=== PATIENT | male | born 1965 | race Caucasian/White ===

== ENCOUNTER 2017-03-14 08:34 | Observation (INO) | payer OTHER ==
[~2017-03-14] VITALS: Ht 170.2 cm; Wt 90.7 kg
[2017-03-14 08:36] VITALS: BP 161/84; PULSE 93; RESP 18; TEMP 98.3; O2SAT 100
[2017-03-14] MEDS ORDERED: ZOFR4TAB PO (08:42)
[2017-03-14] MEDS ORDERED: PERC5TAB12 PO (08:42)
[2017-03-14] MEDS ORDERED: ONDANSETRON HCL 4 MG/2 ML VIAL IV PUSH ONE (08:45)
[2017-03-14] MEDS ORDERED: MORPHINE SULFATE 8 MG/ML INJ IV PUSH ONE ×2 (08:45→10:30)
--- NOTE | 2017-03-14 08:46 | PD ---
HPI Chief Complaint: Flank/Kidney Pain Time Seen by Provider: 08:38 Travel History International Travel<30 days: No Contact w/Intl Traveler<30days: No Traveled to known affect area: No History of Present Illness HPI 52yo M with PMH of nephrolithiasis presents to the ED with c/o left flank pain for 1.5 hours. States he went to an ER that he does not remember the name of and had diagnosis of kidney stones 3 days ago and was given shot of morphine and discharge with percocet. However, he has been vomiting and not able to keep anything down. +Hematuria. Denies any fever, chest pain, sob, testicular pain, penile discharge, focal weakness or numbness. PFSH Past Medical History Medical History: Denies Significant Hx Hx Anticoagulant Therapy: No Diminished Hearing: No Tetanus Vaccination: < 5 Years Past Surgical History Surgical History: No Previous Surgery Social History Alcohol Use: No Tobacco Use: No Substance Use: No Allergies-Medications (Allergen,Severity, Reaction): Coded Allergies: No Known Allergies (Unverified , 03/14/17) Reported Meds & Prescriptions Reported Meds & Active Scripts Active Reported Percocet (Oxycodone-Acetaminophen) 5-325 mg Tab Unknown Dose PO Q4H PRN Zofran (Ondansetron HCl) 4 Mg Tab 4 Mg PO Q8HR PRN Review of Systems Except as stated in HPI: all other systems reviewed are Neg Physical Exam Narrative GENERAL: 52yo M in moderate distress. SKIN: Focused skin assessment warm/dry. HEAD: Atraumatic. Normocephalic. EYES: Pupils equal and round. No scleral icterus. No injection or drainage. ENT: No nasal bleeding or discharge. Mucous membranes pink and moist. NECK: Trachea midline. No JVD. CARDIOVASCULAR: Regular rate and rhythm. No murmur appreciated. RESPIRATORY: No accessory muscle use. Clear to auscultation. Breath sounds equal bilaterally. GASTROINTESTINAL: Abdomen soft, non-tender, nondistended. BACK: +Left flank pain. MUSCULOSKELETAL: No obvious deformities. No clubbing. No cyanosis. No edema. NEUROLOGICAL: Awake and alert. No obvious cranial nerve deficits. Motor grossly within normal limits. Normal speech. PSYCHIATRIC: Appropriate mood and affect; insight and judgment normal. Data Data Last Documented VS Vital Signs Date Time Temp Pulse Resp B/P Pulse Ox O2 Delivery O2 Flow Rate FiO2 03/14/17 09:53 71 16 131/54 98 Room Air 03/14/17 08:36 98.3 Orders Ondansetron Inj (Zofran Inj) (03/14/17 08:45) Morphine Inj (Morphine Inj) (03/14/17 08:45) Complete Blood Count With Diff (03/14/17 08:40) Comprehensive Metabolic Panel (03/14/17 08:40) Ct Abd/Pel W/O Iv Contrast (03/14/17 ) Urinalysis - C+S If Indicated (03/14/17 08:40) Urine Culture (03/14/17 09:07) Ceftriaxone Inj (Rocephin Inj) (03/14/17 09:45) Morphine Inj (Morphine Inj) (03/14/17 10:30) Admit Order (Ed Use Only) (03/14/17 10:40) Consult Urology (03/14/17 ) Labs Laboratory Tests Test 03/14/17 03/14/17 09:00 09:07 White Blood Count 11.9 TH/MM3 Red Blood Count 5.12 MIL/MM3 Hemoglobin 14.7 GM/DL Hematocrit 44.1 % Mean Corpuscular Volume 86.1 FL Mean Corpuscular Hemoglobin 28.7 PG Mean Corpuscular Hemoglobin 33.3 % Concent Red Cell Distribution Width 13.1 % Platelet Count 237 TH/MM3 Mean Platelet Volume 7.9 FL Neutrophils (%) (Auto) 79.1 % Lymphocytes (%) (Auto) 12.5 % Monocytes (%) (Auto) 6.5 % Eosinophils (%) (Auto) 0.6 % Basophils (%) (Auto) 1.3 % Neutrophils # (Auto) 9.2 TH/MM3 Lymphocytes # (Auto) 1.5 TH/MM3 Monocytes # (Auto) 0.8 TH/MM3 Eosinophils # (Auto) 0.1 TH/MM3 Basophils # (Auto) 0.2 TH/MM3 CBC Comment DIFF FINAL Differential Comment Sodium Level 145 MEQ/L Potassium Level 3.7 MEQ/L Chloride Level 110 MEQ/L Carbon Dioxide Level 22.6 MEQ/L Anion Gap 12 MEQ/L Blood Urea Nitrogen 16 MG/DL Creatinine 1.40 MG/DL Estimat Glomerular Filtration 53 ML/MIN Rate Random Glucose 134 MG/DL Calcium Level 9.1 MG/DL Total Bilirubin 0.8 MG/DL Aspartate Amino Transf 21 U/L (AST/SGOT) Alanine Aminotransferase 54 U/L (ALT/SGPT) Alkaline Phosphatase 33 U/L Total Protein 6.8 GM/DL Albumin 3.7 GM/DL Urine Collection Type CLEAN CATCH Urine Color YELLOW Urine Turbidity SLIGHT Urine pH 5.5 Urine Specific Quinn 1.017 Urine Protein TRACE mg/dL Urine Glucose (UA) NEG mg/dL Urine Ketones TRACE mg/dL Urine Occult Blood LARGE Urine Nitrite NEG Urine Bilirubin NEG Urine Leukocyte Esterase TRACE Urine RBC INNUM /hpf Urine WBC 25-49 /hpf Urine Squamous Epithelial 6-8 /hpf Cells Microscopic Urinalysis Comment CULTURE INDICATED Urine Collection Time 09:07 [facility] Medical Decision Making Medical Screen Exam Complete: Yes Emergency Medical Condition: Yes Interpretation(s) Laboratory Tests Test 03/14/17 03/14/17 09:00 09:07 White Blood Count 11.9 TH/MM3 (4.0-11.0) Red Blood Count 5.12 MIL/MM3 (4.50-5.90) Hemoglobin 14.7 GM/DL (13.0-17.0) Hematocrit 44.1 % (39.0-51.0) Mean Corpuscular Volume 86.1 FL (80.0-100.0) Mean Corpuscular Hemoglobin 28.7 PG (27.0-34.0) Mean Corpuscular Hemoglobin 33.3 % Concent (32.0-36.0) Red Cell Distribution Width 13.1 % (11.6-17.2) Platelet Count 237 TH/MM3 (150-450) Mean Platelet Volume 7.9 FL (7.0-11.0) Neutrophils (%) (Auto) 79.1 % (16.0-70.0) Lymphocytes (%) (Auto) 12.5 % (9.0-44.0) Monocytes (%) (Auto) 6.5 % (0.0-8.0) Eosinophils (%) (Auto) 0.6 % (0.0-4.0) Basophils (%) (Auto) 1.3 % (0.0-2.0) Neutrophils # (Auto) 9.2 TH/MM3 (1.8-7.7) Lymphocytes # (Auto) 1.5 TH/MM3 (1.0-4.8) Monocytes # (Auto) 0.8 TH/MM3 (0-0.9) Eosinophils # (Auto) 0.1 TH/MM3 (0-0.4) Basophils # (Auto) 0.2 TH/MM3 (0-0.2) CBC Comment DIFF FINAL Differential Comment Sodium Level 145 MEQ/L (136-145) Potassium Level 3.7 MEQ/L (3.5-5.1) Chloride Level 110 MEQ/L (98-107) Carbon Dioxide Level 22.6 MEQ/L (21.0-32.0) Anion Gap 12 MEQ/L (5-15) Blood Urea Nitrogen 16 MG/DL (7-18) Creatinine 1.40 MG/DL (0.60-1.30) Estimat Glomerular Filtration 53 ML/MIN (>89) Rate Random Glucose 134 MG/DL (74-106) Calcium Level 9.1 MG/DL (8.5-10.1) Total Bilirubin 0.8 MG/DL (0.2-1.0) Aspartate Amino Transf 21 U/L (15-37) (AST/SGOT) Alanine Aminotransferase 54 U/L (12-78) (ALT/SGPT) Alkaline Phosphatase 33 U/L (45-117) Total Protein 6.8 GM/DL (6.4-8.2) Albumin 3.7 GM/DL (3.4-5.0) Urine Collection Type CLEAN CATCH Urine Color YELLOW (YELLW/STRAW) Urine Turbidity SLIGHT (CLEAR) Urine pH 5.5 (5.0-8.5) Urine Specific Quinn 1.017 (1.002-1.035) Urine Protein TRACE mg/dL (NEG-TRACE) Urine Glucose (UA) NEG mg/dL (NEG) Urine Ketones TRACE mg/dL (NEG) Urine Occult Blood LARGE (NEG) Urine Nitrite NEG (NEG) Urine Bilirubin NEG (NEG) Urine Leukocyte Esterase TRACE (NEG) Urine RBC INNUM /hpf (0-3) Urine WBC 25-49 /hpf (0-5) Urine Squamous Epithelial 6-8 /hpf (0-5) Cells Microscopic Urinalysis Comment CULTURE INDICATED Urine Collection Time 09:07 Last Impressions Abdomen/Pelvis CT 03/14/17 0000 Signed Impressions: Service Date/Time: Tuesday, March 14, 2017 09:06 - CONCLUSION: 4 mm obstructing stone distal third left ureter. Multiple stones remain in the left kidney. Single stone is present in the right. Kamari Nj MD FACR Differential Diagnosis Nephrolithiasis vs. pyelonephritis vs. colitis Narrative Course 52yo M with recent diagnosis of nephrolithiasis here with left flank pain. Pain appears very uncomfortable and states he is not allergic to morphine, just had some nausea last time. Will give zofran and morphine IV, obtain labs and CTa/p-. Pt has gone to [facility] ED 2 times since Friday and this is his third ED visit for this. Labs reviewed, mild leukocytosis at 11.9. Creatinine elevated at 1.40. UA showed large blood, WBC 25-49. Pt given ceftriaxone 1gm IV. Pt reevaluated at bedside and pain and nausea has improved. Pt states pain is starting to return. Ordered another dose of morphine. CTa/p showed 4mm obstructing stone distal third ureter. Discussed with urologist ship yard electrical person Dr. Alonso and he said to admit for pain control. Consult placed. Discussed with Dr. Garcia and accepted to his service for obstructive uropathy. Diagnosis Primary Impression: Obstructive uropathy Additional Impression: UTI (urinary tract infection) Qualified Code: N39.0 - Urinary tract infection with hematuria, site unspecified Admitting Information Admitting Physician Requests: Yumiko Snow DO Mar 14, 2017 08:46
[2017-03-14 09:10] LABS: AUTOMATED NEUTROPHIL # 9.2 TH/MM3 (1.8-7.7); BASOPHIL # 0.2 TH/MM3 (0-0.2); BASOPHIL % 1.3 % (0.0-2.0); EOSINOPHIL # 0.1 TH/MM3 (0-0.4); EOSINOPHIL % 0.6 % (0.0-4.0); HEMATOCRIT 44.1 % (39.0-51.0); LYMPH % 12.5 % (9.0-44.0); LYMPHOCYTE # 1.5 TH/MM3 (1.0-4.8); MEAN CELL VOLUME 86.1 FL (80.0-100.0); MEAN CORPUSCULAR HEMOGLOBIN 28.7 PG (27.0-34.0); MEAN CORPUSCULAR HGB CONC 33.3 % (32.0-36.0); MONO % 6.5 % (0.0-8.0); NEUT % 79.1 % (16.0-70.0); PLATELET COUNT 237 TH/MM3 (150-450); RED BLOOD COUNT 5.12 MIL/MM3 (4.50-5.90); RED CELL DISTRIBUTION WIDTH 13.1 % (11.6-17.2); WHITE BLOOD COUNT 11.9 TH/MM3 (4.0-11.0)
[2017-03-14 09:17] LABS: HEMO FLAGS DIFF FINAL
[2017-03-14 09:21] LABS: BLOOD, URINE LARGE (NEG); GLUCOSE,URINE NEG (NEG); KETONE, URINE TRACE mg/dL (NEG); NITRITE,URINE NEG (NEG); PH, URINE 5.5 (5.0-8.5)
[2017-03-14 09:25] LABS: METHOD OF COLLECTION CLEAN CATCH; URINE COLOR YELLOW (YELLW/STRAW)
[2017-03-14 09:26] LABS: COMMENT (UR) CULTURE INDICATED; CULTURE IF INDICATED CULTURE INDICATED; RBC, URINE INNUM /hpf (0-3)
--- NOTE | 2017-03-14 09:42 | RADRPT ---
EXAM DATE/TIME: 03/14/2017 09:06 [facility] COMPARISON: No previous studies available for comparison. INDICATIONS : Left flank and back pain. ORAL CONTRAST: No oral contrast ingested. RADIATION DOSE: 18.57 CTDIvol (mGy) MEDICAL HISTORY : Renal calculi. SURGICAL HISTORY : None. ENCOUNTER: Initial ACUITY: 4 - 6 days PAIN SCALE: 10/10 LOCATION: Left flank TECHNIQUE: Volumetric scanning of the abdomen and pelvis was performed. Using automated exposure control and ad justment of the mA and/or kV according to patient size, radiation dose was kept as low as reasonably achievable to obtain optimal diagnostic quality images. DICOM format image data is available electro nically for review and comparison. FINDINGS: The lung base is are clear. There is no pericardial effusion. Granulomas are present in the spleen. The pancreas, kidneys and gallbladder are unremarkable Right kidney: There is a 4 mm nonobstructing stone midportion right kidney. Left kidney: Multiple small 1-2 mm calcifications are present in the left kidney with mild perinephric stranding. A dilated ureter extending down to the mid pelvis were a 4 mm stone is seen in the midportion of th e distal third of the left ureter. Pelvic contents otherwise unremarkable with the exception of prostatic calcifications. CONCLUSION: 4 mm obstructing stone distal third left ureter. Multiple stones remain in the left kidney. Single stone is present in the right. Kamari Nj MD FACR on March 14, 2017 at 9:37 Board Certified Radiologist. This report was verified electronically.
[2017-03-14] MEDS ORDERED: cefTRIAXone INJ 1,000 MG in SODIUM CHLORIDE 0.9% INJ 100 ML IV ONE (09:45)
[2017-03-14 09:48] LABS: BICARBONATE 22.6 MEQ/L (21.0-32.0); BLOOD UREA NITROGEN 16 MG/DL (7-18)
[2017-03-14 09:51] LABS: AST (GOT) 21 U/L (15-37); GLOMERULAR FILTRATION RATE 53 ML/MIN (>89)
[2017-03-14 09:53] VITALS: BP 131/54; PULSE 71; RESP 16; O2SAT 98
[2017-03-14 09:53] LABS: TOTAL BILIRUBIN ADULT 0.8 MG/DL (0.2-1.0)
[2017-03-14 09:54] LABS: ALKALINE PHOSPHATASE 33 U/L (45-117)
[2017-03-14 09:55] LABS: ANION GAP 12 MEQ/L (5-15); CHLORIDE 110 MEQ/L (98-107); POTASSIUM 3.7 MEQ/L (3.5-5.1); SODIUM (NA) 145 MEQ/L (136-145)
[2017-03-14 10:06] LABS: ALT (GPT) 54 U/L (12-78)
[2017-03-14] MEDS ORDERED: MORPHINE SULFATE 4 MG/ML INJ IV PUSH ONE (10:30)
[2017-03-14] MEDS ORDERED: ONDANSETRON HCL 4 MG/2 ML VIAL IVP PRN (10:45)
[2017-03-14] MEDS ORDERED: SODIUM CHLORIDE 0.9% FLUSH 10 ML FLUSH IV FLUSH PRN (10:45)
[2017-03-14] MEDS ORDERED: SENNOSIDES 8.6 MG TAB PO PRN (10:45)
[2017-03-14] MEDS ORDERED: BISACODYL 10 MG SUPP RECTAL PRN (10:45)
[2017-03-14] MEDS ORDERED: LACTULOSE SYRUP 20 GM/30 ML CUP PO PRN (10:45)
[2017-03-14] MEDS ORDERED: ACETAMINOPHEN 325 MG TAB PO PRN (10:45)
[2017-03-14] MEDS ORDERED: NALOXONE HCL 0.4 MG/ML AMP IV PRN (10:45)
[2017-03-14] MEDS ORDERED: MAGNESIUM HYDROXIDE SUSP 30 ML CUP PO PRN (10:45)
[2017-03-14 11:42] VITALS: BP 130/60; PULSE 74; RESP 18; O2SAT 97
[2017-03-14] MEDS ORDERED: MORPHINE SULFATE 8 MG/ML INJ IV PUSH PRN (12:45)
[2017-03-14] MEDS: SODIUM CHLOR 0.9% 1000 ML INJ 1,000 ML IV SCH ×3 (12:56→18:27)
[2017-03-14] MEDS: oxyCODONE/ACETAMINOPHEN 10 MG/325 MG TAB PO PRN ×2 (12:56→18:35)
[2017-03-14 12:59] VITALS: BP 132/51; PULSE 61; RESP 18; O2SAT 98
--- NOTE | 2017-03-14 13:13 | HHI.HP ---
[facility] No Primary Care Physician Admission Diagnosis Obstructive uropathy Diagnoses: Chief Complaint: Left Flank pain Travel History International Travel<30 Days: No Contact w/Intl Traveler <30 Da: No Traveled to Known Affected Are: No History of Present Illness Mr. Marion is a 52-year-old male with a history of kidney stone who presents to the emergency department on 03/14/2017 with left flank pain that started one and half hour before presentation. He has had flank pain in the last one week and he passed one stone. He felt well after he passed stone. However, today, he started experiencing pain again. He has not been able to keep anything down due to nausea vomiting. He reports hematuria as well. Denies any increased urinary frequency, fever, chills. No changes in bowel habits. No chest pain, shortness of breath, cough. Review of Systems Except as stated in HPI: all other systems reviewed are Neg Past Family Social History Past Medical History No significant medical history Past Surgical History No significant surgical history. Reported Medications Percocet (Oxycodone-Acetaminophen) 5-325 mg Tab Unknown Dose PO Q4H PRN Zofran (Ondansetron HCl) 4 Mg Tab 4 Mg PO Q8HR PRN Allergies: Coded Allergies: No Known Allergies (Unverified , 03/14/17) Family History Father - kidney stone, prostate issues. Social History Denies using alcohol, tobacco, illicit drugs. Physical Exam Vital Signs Vital Signs Date Time Temp Pulse Resp B/P Pulse Ox O2 Delivery O2 Flow Rate FiO2 03/14/17 12:59 61 18 132/51 98 Room Air 03/14/17 11:42 74 18 130/60 97 Room Air 03/14/17 09:53 71 16 131/54 98 Room Air 03/14/17 08:36 98.3 93 18 161/84 100 Physical Exam GENERAL: This is a well-nourished, well-developed patient, in no apparent distress. SKIN: No rashes, ecchymoses or lesions. Warm and dry. HEAD: Atraumatic. Normocephalic. No temporal or scalp tenderness. EYES: Pupils equal round and reactive. No injection or drainage. ENT: Nose without bleeding, purulent drainage or septal hematoma. Airway patent. NECK: Trachea midline. No lymphadenopathy. Supple, nontender, no meningeal signs. CARDIOVASCULAR: Regular rate and rhythm without murmurs, gallops, or rubs. No JVD. RESPIRATORY: Clear to auscultation. Breath sounds equal bilaterally. No wheezes , rales, or rhonchi. GASTROINTESTINAL: Abdomen soft, non-tender, nondistended. No guarding. Left sided CVA tenderness present. MUSCULOSKELETAL: Extremities without clubbing, cyanosis, or edema. NEUROLOGICAL: Awake and alert. Cranial nerves II through XII intact. No focal neurological deficits. Normal speech. Laboratory Laboratory Tests Test 03/14/17 03/14/17 09:00 09:07 White Blood Count 11.9 Red Blood Count 5.12 Hemoglobin 14.7 Hematocrit 44.1 Mean Corpuscular Volume 86.1 Mean Corpuscular Hemoglobin 28.7 Mean Corpuscular Hemoglobin 33.3 Concent Red Cell Distribution Width 13.1 Platelet Count 237 Mean Platelet Volume 7.9 Neutrophils (%) (Auto) 79.1 Lymphocytes (%) (Auto) 12.5 Monocytes (%) (Auto) 6.5 Eosinophils (%) (Auto) 0.6 Basophils (%) (Auto) 1.3 Neutrophils # (Auto) 9.2 Lymphocytes # (Auto) 1.5 Monocytes # (Auto) 0.8 Eosinophils # (Auto) 0.1 Basophils # (Auto) 0.2 CBC Comment DIFF FINAL Differential Comment Sodium Level 145 Potassium Level 3.7 Chloride Level 110 Carbon Dioxide Level 22.6 Anion Gap 12 Blood Urea Nitrogen 16 Creatinine 1.40 Estimat Glomerular Filtration 53 Rate Random Glucose 134 Calcium Level 9.1 Total Bilirubin 0.8 Aspartate Amino Transf 21 (AST/SGOT) Alanine Aminotransferase 54 (ALT/SGPT) Alkaline Phosphatase 33 Total Protein 6.8 Albumin 3.7 Urine Collection Type CLEAN CATCH Urine Color YELLOW Urine Turbidity SLIGHT Urine pH 5.5 Urine Specific Zamora 1.017 Urine Protein TRACE Urine Glucose (UA) NEG Urine Ketones TRACE Urine Occult Blood LARGE Urine Nitrite NEG Urine Bilirubin NEG Urine Leukocyte Esterase TRACE Urine RBC INNUM Urine WBC 25-49 Urine Squamous Epithelial 6-8 Cells Microscopic Urinalysis Comment CULTURE INDICATED Urine Collection Time 09:07 Date/Time Procedure Status Source Growth 03/14/17 09:07 Urine Culture Received Urine Clean Catch Pending Result Diagram: 03/14/17 0900 03/14/17 0900 Imaging Last Impressions Abdomen/Pelvis CT 03/14/17 0000 Signed Impressions: Service Date/Time: Tuesday, March 14, 2017 09:06 - CONCLUSION: 4 mm obstructing stone distal third left ureter. Multiple stones remain in the left kidney. Single stone is present in the right. Kamari Nj MD FACR Assessment and Plan Problem List: (1) Left ureteral calculus ICD Code: N20.1 Status: Acute (2) AME (acute kidney injury) ICD Code: N17.9 Status: Acute Assessment and Plan Mr. Marion is a 52 year old male with a history of kidney stone who presents to the emergency department due to left flank pain. CT abdomen pelvis shows left distal ureter stone. Urology was consulted. - Left ureteral calculus - Urology consulted. - Continue NS 150cc/hour. - Continue Percocet, Morphine PRN for pain control. - Discussed with Urology (Dr. Alonso). We will continue conservative management. If patient does not pass stone, Urology eval would be necessary. - Acute kidney injury - Likely due to obstructive calculus. - Will continue to monitor. Avoid NSAIDs and other nephrotoxins. Full code. SCDs. Grzegorz Garcia DO Mar 14, 2017 1:13 pm
[2017-03-14 15:00] VITALS: BP 114/63; PULSE 73; RESP 18; TEMP 98.7; O2SAT 95
[2017-03-14] MEDS: TAMSULOSIN HCL 0.4 MG CAP PO SCH (18:26)
--- NOTE | 2017-03-14 19:00 | MB ---
cc: TERRENCE TUCKER MD DATE OF CONSULTATION 03/14/17 REASON FOR CONSULTATION 1. Distal left ureteral stone. 2. Left flank pain. 3. History of kidney stones. HISTORY OF PRESENT ILLNESS The patient is a 52-year-old male with a history of kidney stones in which he passed last year, presented to the emergency department on 03/14/17 with sharp stabbing left flank pain 10/10 in intensity earlier this morning. He had pain earlier this week while here on vacation from [place] in which he ended up passing two stones. This pain today is similar to the pain he had 3 days ago. Denies nausea, vomiting, fevers, chills, dysuria, hematuria. The patient had a CT of the abdomen and pelvis without contrast done today in the ER which showed a 4 mm distal left ureteral stone with mild hydronephrosis. He also had a nonobstructing stone in the right kidney. He was then admitted for pain control. Currently, his pain is improved but still present in his left flank. However, it is controlled with oral Percocet. He has not received any IV pain medication since being admitted. He denies family history of kidney stones or family history of prostate cancer. He was supposed to head back to [place] today but the pain was so excruciating earlier this morning that he came to the ER. He would like to pass the stone and try to avoid surgery if possible. REVIEW OF SYSTEMS See HPI, otherwise, all systems reviewed otherwise are negative. PAST MEDICAL HISTORY Past history for kidney stones. PAST SURGICAL HISTORY Circumcision. ALLERGIES None. FAMILY HISTORY Negative for genitourinary malignancies. Negative for urolithiasis. SOCIAL HISTORY Denies smoking, alcohol or illicit drugs. He is , lives in [place]. REPORTED MEDICATIONS Included: 1. Percocet 5/325 q.4 hours p.r.n. pain. 2. Zofran 4 milligrams p.o. q.8 hours p.r.n. nausea. REVIEW OF SYSTEMS See HPI, otherwise, all systems reviewed otherwise were negative. PHYSICAL EXAMINATION VITAL SIGNS: Temperature 98.7, pulse is 73, respirations 18, blood pressure 149/63, satting 98% on room air. GENERAL: He is alert and oriented x3. No apparent distress. Pleasant, cooperative gentleman, appears his stated age. HEENT: Head is normocephalic, atraumatic. Neck is supple. Trachea is midline. No JVD. Eyes: No scleral icterus. Extraocular muscles intact. Skin: No ulcers or rashes. Mucous membranes pink and moist. LUNGS: Clear to auscultation bilaterally. No wheezes, rales or rhonchi. HEART: Regular rhythm. No murmurs, gallops, rubs. ABDOMEN: Soft, nontender, mild distension. Positive bowel sounds. GENITORUINARY: There is no CVA tenderness bilaterally. His penis is circumcised. Testes are descended bilaterally, normal size and consistency. RECTAL: Examination not indicated at this time. EXTREMITIES: Nontender. No clubbing, cyanosis, edema. PSYCH: Normal affect. NEUROLOGICAL: Cranial nerves II-XII intact. Strength is 5/5 in all four extremities. LABORATORY DATA Labs show a white count 11.9, hemoglobin 14.7, hematocrit 44.1, platelet count 237. Chemistry 145, potassium 3.7, chloride 110, bicarb 22.6, BUN 16, creatinine 1.40, glucose 134. Urine showed large blood, trace leukocyte esterase. Culture currently pending. IMAGING STUDIES CT of abdomen and pelvis without contrast images are reviewed. Agree with radiologist's report. The patient has a 4 mm distal left ureteral stone mild hydronephrosis as well as a right 5 mm non-obstructing stone. ASSESSMENT/PLAN The patient is a 52-year-old male with a history of kidney stones, presented with left flank pain and found to have a distal left ureteral stone approximately 4 mm in size with mild hydronephrosis. PLAN Recommend conservative management and trial of passage. Will start the patient on Flomax 0.4 milligrams daily and have him strain all urine. Will check a KUB in the morning. As long as his pain remains controlled and his symptoms do not worsen or he becomes septic I think it warrants in my opinion a trial passage of the stone. Thank you for this consultation. Terrence Tucker MD EMMely/CHYNA /6:06 PM /6:45 PM
[2017-03-14 20:21] VITALS: BP 113/60; PULSE 70; RESP 18; TEMP 99.4; O2SAT 94
[2017-03-14] MEDS: DOCUSATE SODIUM 50 MG/SENNA 8.6 MG TAB PO SCH (20:45)
[2017-03-14] MEDS: SODIUM CHLORIDE 0.9% FLUSH 10 ML FLUSH IV FLUSH SCH (20:49)
[2017-03-15 00:36] VITALS: BP 107/71; PULSE 88; RESP 22; TEMP 99; O2SAT 96
--- NOTE | 2017-03-15 06:44 | RADRPT ---
EXAM DATE/TIME: 03/15/2017 06:04 [facility] COMPARISON: CT ABDOMEN & PELVIS W/O CONTRAST, March 14, 2017, 9:06. INDICATIONS : Left flank and back pain. MEDICAL HISTORY : Renal calculi. SURGICAL HISTORY : None. ENCOUNTER: Initial ACUITY: 1 week PAIN SCORE: 1/10 LOCATION: Bilateral abdomen FINDINGS: Supine view of the abdomen was performed. 3 mm calcification remains overlying the left hemipelvis mo re consistent with a phlebolith identified on the previous CT scan rather than the ureteral stone see n previously. 2 mm calcification overlies the mid pole left kidney is of uncertain significance . The abdominal bowel gas pattern is normal. No abnormal masses, or organomegaly is seen. The osseou s structures are unremarkable. CONCLUSION: There is a calcification overlying the left side of the pelvis. It is difficult to long lines operator whether it is in the phlebolith or the actual ureteral calculus identified previously on the CT scan. The bowel gas pattern is unremarkable Juanjose Flynn MD on March 15, 2017 at 6:37 Board Certified Radiologist. This report was verified electronically.
[2017-03-15 07:26] LABS: BASOPHIL # 0.1 TH/MM3 (0-0.2); BASOPHIL % 0.9 % (0.0-2.0); EOSINOPHIL # 0.1 TH/MM3 (0-0.4); HEMATOCRIT 38.6 % (39.0-51.0); HEMO FLAGS DIFF FINAL; LYMPH % 27.2 % (9.0-44.0); LYMPHOCYTE # 2.1 TH/MM3 (1.0-4.8); MEAN CORPUSCULAR HEMOGLOBIN 28.7 PG (27.0-34.0); MEAN CORPUSCULAR HGB CONC 33.3 % (32.0-36.0); MONO % 7.9 % (0.0-8.0); PLATELET COUNT 193 TH/MM3 (150-450); RED BLOOD COUNT 4.49 MIL/MM3 (4.50-5.90); RED CELL DISTRIBUTION WIDTH 12.8 % (11.6-17.2); WHITE BLOOD COUNT 7.9 TH/MM3 (4.0-11.0)
[2017-03-15 07:29] LABS: POTASSIUM 3.8 MEQ/L (3.5-5.1)
[2017-03-15 08:00] VITALS: BP 124/76; PULSE 64; RESP 16; TEMP 98.5; O2SAT 95
[2017-03-15 08:02] LABS: BICARBONATE 27.1 MEQ/L (21.0-32.0)
[2017-03-15] MEDS: TAMSULOSIN HCL 0.4 MG CAP PO SCH (08:13)
[2017-03-15] MEDS: SODIUM CHLOR 0.9% 1000 ML INJ 1,000 ML IV SCH ×4 (08:15→22:21)
[2017-03-15] MEDS: DOCUSATE SODIUM 50 MG/SENNA 8.6 MG TAB PO SCH ×2 (08:16→20:52)
[2017-03-15] MEDS: SODIUM CHLORIDE 0.9% FLUSH 10 ML FLUSH IV FLUSH SCH ×2 (08:16→20:52)
--- NOTE | 2017-03-15 09:37 | HHI.PR ---
Subjective Remarks Follow up for left ureter stone. Patient is doing well. He passed a stone last night. Last pain med was at 8pm yesterday. No fever, chills. Objective Vitals Vital Signs Date Time Temp Pulse Resp B/P Pulse Ox O2 Delivery O2 Flow Rate FiO2 03/15/17 08:00 98.5 64 16 124/76 95 03/15/17 04:34 03/15/17 00:36 99.0 88 22 107/71 96 03/14/17 20:21 99.4 70 18 113/60 94 03/14/17 15:00 98.7 73 18 114/63 95 03/14/17 14:41 16 03/14/17 12:59 61 18 132/51 98 Room Air 03/14/17 11:42 74 18 130/60 97 Room Air 03/14/17 09:53 71 16 131/54 98 Room Air I/O 03/14/17 03/14/17 03/14/17 03/15/17 03/15/17 03/15/17 07:00 15:00 23:00 07:00 15:00 23:00 Intake Total 600 ml Balance 600 ml Intake IV Total 600 ml # Voids 4 Result Diagram: 03/15/17 0655 03/15/17 0655 Imaging Last Impressions Abdomen X-Ray 03/15/17 0600 Signed Impressions: Service Date/Time: Wednesday, March 15, 2017 06:04 - CONCLUSION: There is a calcification overlying the left side of the pelvis. It is difficult to appellate court judge whether it is in the phlebolith or the actual ureteral calculus identified previously on the CT scan. The bowel gas pattern is unremarkable Juanjose Flynn MD Abdomen/Pelvis CT 03/14/17 0000 Signed Impressions: Service Date/Time: Tuesday, March 14, 2017 09:06 - CONCLUSION: 4 mm obstructing stone distal third left ureter. Multiple stones remain in the left kidney. Single stone is present in the right. Kamari Nj MD FACR Objective Remarks GENERAL: AOX3, NAD. SKIN: Warm and dry. HEAD: Normocephalic. EYES: No scleral icterus. No injection or drainage. NECK: Supple, trachea midline. No JVD or lymphadenopathy. CARDIOVASCULAR: Regular rate and rhythm without murmurs, gallops, or rubs. RESPIRATORY: Breath sounds equal bilaterally. No accessory muscle use. GASTROINTESTINAL: Abdomen soft, non-tender, nondistended. MUSCULOSKELETAL: No cyanosis, or edema. BACK: Nontender without obvious deformity. No CVA tenderness. Procedures None. A/P Problem List: (1) Left ureteral calculus ICD Code: N20.1 Status: Acute (2) AME (acute kidney injury) ICD Code: N17.9 Status: Acute Assessment and Plan Mr. Marion is a 52 year old male with a history of kidney stone who presents to the emergency department due to left flank pain. CT abdomen pelvis shows left distal ureter stone. Urology was consulted. - Left ureteral calculus - Urology consulted - recommended conservative management. Flomax started. - Continue NS 150cc/hour. - Continue Percocet, Morphine PRN for pain control. - Passed one stone last night. - Reviewed KUB by me - still shows a possible stone in the left ureter. - Acute kidney injury - Likely due to obstructive calculus. - Will continue to monitor. Avoid NSAIDs and other nephrotoxins. - Improved 1.40 --> 1.10. Full code. SCDs. Grzegorz Garcia DO Mar 15, 2017 9:37 am
--- NOTE | 2017-03-15 11:22 | PD.PN.STU ---
Subjective Remarks Follow up for left ureter stone. Patient states he passed one stone last night. Pain is well controlled; last pain medication 8pm last night. Denies fever, chills. Has not noticed any visible blood in urine. No other complaints. Objective Vitals Vital Signs Date Time Temp Pulse Resp B/P Pulse Ox O2 Delivery O2 Flow Rate FiO2 03/15/17 08:00 98.5 64 16 124/76 95 03/15/17 04:34 03/15/17 00:36 99.0 88 22 107/71 96 03/14/17 20:21 99.4 70 18 113/60 94 03/14/17 15:00 98.7 73 18 114/63 95 03/14/17 14:41 16 03/14/17 12:59 61 18 132/51 98 Room Air 03/14/17 11:42 74 18 130/60 97 Room Air I/O 03/14/17 03/14/17 03/14/17 03/15/17 03/15/17 03/15/17 07:00 15:00 23:00 07:00 15:00 23:00 Intake Total 600 ml Balance 600 ml Intake IV Total 600 ml # Voids 4 Result Diagram: 03/15/17 0655 03/15/17 0655 Other Results Laboratory Tests Test 03/14/17 03/14/17 03/15/17 09:00 09:07 06:55 Total Bilirubin 0.8 MG/DL Aspartate Amino Transf 21 U/L (AST/SGOT) Alanine Aminotransferase 54 U/L (ALT/SGPT) Alkaline Phosphatase 33 U/L Total Protein 6.8 GM/DL Albumin 3.7 GM/DL Urine Collection Type CLEAN CATCH Urine Color YELLOW Urine Turbidity SLIGHT Urine pH 5.5 Urine Specific [place] 1.017 Urine Protein TRACE mg/dL Urine Glucose (UA) NEG mg/dL Urine Ketones TRACE mg/dL Urine Occult Blood LARGE Urine Nitrite NEG Urine Bilirubin NEG Urine Leukocyte Esterase TRACE Urine RBC INNUM /hpf Urine WBC 25-49 /hpf Urine Squamous Epithelial 6-8 /hpf Cells Microscopic Urinalysis Comment CULTURE INDICATED Urine Collection Time 09:07 White Blood Count 7.9 TH/MM3 Red Blood Count 4.49 MIL/MM3 Hemoglobin 12.9 GM/DL Hematocrit 38.6 % Mean Corpuscular Volume 86.0 FL Mean Corpuscular Hemoglobin 28.7 PG Mean Corpuscular Hemoglobin 33.3 % Concent Red Cell Distribution Width 12.8 % Platelet Count 193 TH/MM3 Mean Platelet Volume 7.9 FL Neutrophils (%) (Auto) 63.0 % Lymphocytes (%) (Auto) 27.2 % Monocytes (%) (Auto) 7.9 % Eosinophils (%) (Auto) 1.0 % Basophils (%) (Auto) 0.9 % Neutrophils # (Auto) 5.0 TH/MM3 Lymphocytes # (Auto) 2.1 TH/MM3 Monocytes # (Auto) 0.6 TH/MM3 Eosinophils # (Auto) 0.1 TH/MM3 Basophils # (Auto) 0.1 TH/MM3 CBC Comment DIFF FINAL Differential Comment Sodium Level 146 MEQ/L Potassium Level 3.8 MEQ/L Chloride Level 110 MEQ/L Carbon Dioxide Level 27.1 MEQ/L Anion Gap 9 MEQ/L Blood Urea Nitrogen 12 MG/DL Creatinine 1.10 MG/DL Estimat Glomerular Filtration 70 ML/MIN Rate Random Glucose 92 MG/DL Calcium Level 8.9 MG/DL Imaging Last 72 hours Impressions Abdomen X-Ray 03/15/17 0600 Signed Impressions: Service Date/Time: Wednesday, March 15, 2017 06:04 - CONCLUSION: There is a calcification overlying the left side of the pelvis. It is difficult to retirement plan counselor whether it is in the phlebolith or the actual ureteral calculus identified previously on the CT scan. The bowel gas pattern is unremarkable Juanjose Flynn MD Abdomen/Pelvis CT 03/14/17 0000 Signed Impressions: Service Date/Time: Tuesday, March 14, 2017 09:06 - CONCLUSION: 4 mm obstructing stone distal third left ureter. Multiple stones remain in the left kidney. Single stone is present in the right. Kamari Nj MD FACR Objective Remarks GENERAL: This is a well-nourished, well-developed, obese patient, in no apparent distress. SKIN: No rashes, ecchymoses or lesions. Warm and dry. HEAD: Atraumatic. Normocephalic. No temporal or scalp tenderness. EYES: Pupils equal round and reactive. No injection or drainage. ENT: Nose without bleeding, purulent drainage or septal hematoma. Airway patent. NECK: Trachea midline. No lymphadenopathy. Supple, nontender, no meningeal signs. CARDIOVASCULAR: Regular rate and rhythm without murmurs, gallops, or rubs. No JVD. RESPIRATORY: Clear to auscultation. Breath sounds equal bilaterally. No wheezes , rales, or rhonchi. GASTROINTESTINAL: Abdomen soft, non-tender, nondistended. No guarding. Left sided CVA tenderness present- improved MUSCULOSKELETAL: Extremities without clubbing, cyanosis, or edema. NEUROLOGICAL: Awake and alert. No focal neurological deficits. Normal speech. A/P Assessment and Plan Mr. Marion is a 52 year old male with a history of kidney stone who presents to the emergency department on 03/14 due to left flank pain. CT abdomen pelvis shows left distal ureter stone. Urology was consulted Left ureter calculus - Urology was consulted; recommended continuation of conservative treatment. Started Flomax 0.4mg per day. - Continue NS 150cc/hour - Continue Percocet, Morphine PRN for pain - Strain all urine Acute Kidney Injury - likely due to calculus - improving, will continue to monitor. Avoid NSAIDs Obesity - diet and exercise recommended Aliza Castanon M3 Mar 15, 2017 11:22
[2017-03-15 11:57] VITALS: BP 142/85; PULSE 71; RESP 16; TEMP 99; O2SAT 94
[2017-03-15] MEDS: oxyCODONE/ACETAMINOPHEN 10 MG/325 MG TAB PO PRN ×2 (12:32→18:12)
[2017-03-15 16:00] VITALS: BP 139/83; PULSE 73; RESP 16; TEMP 98.9; O2SAT 95
[2017-03-15 20:51] VITALS: BP 140/84; PULSE 69; RESP 18; TEMP 98.7; O2SAT 97
[2017-03-16 01:16] VITALS: BP 133/83; PULSE 60; RESP 16; TEMP 98; O2SAT 96
[2017-03-16] MEDS: SODIUM CHLOR 0.9% 1000 ML INJ 1,000 ML IV SCH (05:00)
[2017-03-16 07:48] VITALS: BP 156/97; PULSE 73; RESP 16; TEMP 98.1; O2SAT 93
[2017-03-16] MEDS: DOCUSATE SODIUM 50 MG/SENNA 8.6 MG TAB PO SCH (08:33)
[2017-03-16] MEDS: TAMSULOSIN HCL 0.4 MG CAP PO SCH (08:33)
[2017-03-16] MEDS: SODIUM CHLORIDE 0.9% FLUSH 10 ML FLUSH IV FLUSH SCH (08:34)
[2017-03-16] MEDS ORDERED: TAMS5CAP PO (10:34)
[2017-03-16] MEDS ORDERED: OXYC1TAB36 PO (10:34)
--- NOTE | 2017-03-16 10:37 | HHI.PR ---
Subjective Remarks Follow up for left ureter stone. Patient is currently doing well. Denies any chest pain, shortness of breath, fever or chills. Denies any left-sided flank pain. He has not used any pain medication since 6 PM on 03/15/2017. He used pain medication at 6 PM yesterday due to headache not due to flank pain. Objective Vitals Vital Signs Date Time Temp Pulse Resp B/P Pulse Ox O2 Delivery O2 Flow Rate FiO2 03/16/17 07:48 98.1 73 16 156/97 93 03/16/17 04:36 03/16/17 01:16 98.0 60 16 133/83 96 03/15/17 20:51 98.7 69 18 140/84 97 03/15/17 19:12 18 03/15/17 16:00 98.9 73 16 139/83 95 03/15/17 11:57 99.0 71 16 142/85 94 I/O 03/15/17 03/15/17 03/15/17 03/16/17 03/16/17 03/16/17 07:00 15:00 23:00 07:00 15:00 23:00 Intake Total 900 ml 6656 ml 900 ml Balance 900 ml 6656 ml 900 ml Intake Oral 900 ml IV Total 6656 ml 900 ml # Voids 4 3 2 3 # Bowel Movements 0 Result Diagram: 03/15/17 0655 03/15/17 0655 Imaging Last Impressions Abdomen X-Ray 03/16/17 0000 Signed Impressions: Service Date/Time: Thursday, March 16, 2017 10:44 - CONCLUSION: Left distal ureteral calculus. Ivan Le MD Abdomen/Pelvis CT 03/14/17 0000 Signed Impressions: Service Date/Time: Tuesday, March 14, 2017 09:06 - CONCLUSION: 4 mm obstructing stone distal third left ureter. Multiple stones remain in the left kidney. Single stone is present in the right. Kamari Nj MD FACR Objective Remarks GENERAL: AOX3, NAD. SKIN: Warm and dry. HEAD: Normocephalic. EYES: No scleral icterus. No injection or drainage. NECK: Supple, trachea midline. No JVD or lymphadenopathy. CARDIOVASCULAR: Regular rate and rhythm without murmurs, gallops, or rubs. RESPIRATORY: Breath sounds equal bilaterally. No accessory muscle use. GASTROINTESTINAL: Abdomen soft, non-tender, nondistended. MUSCULOSKELETAL: No cyanosis, or edema. BACK: Nontender without obvious deformity. No CVA tenderness. Procedures None. A/P Problem List: (1) Left ureteral calculus ICD Code: N20.1 Status: Acute (2) AME (acute kidney injury) ICD Code: N17.9 Status: Acute Assessment and Plan Mr. Marion is a 52 year old male with a history of kidney stone who presents to the emergency department due to left flank pain. CT abdomen pelvis shows left distal ureter stone. Urology was consulted. - Left ureteral calculus - Urology consulted - recommended conservative management. Flomax started. - Continue NS 150cc/hour. - Continue Percocet, Morphine PRN for pain control. - Passed one stone last night. - Reviewed KUB by me on 03/16/2017 -shows a 0.6 cm left ureteral stone. - Discussed with urologist who agreed with the discharge plan since patient is asymptomatic. Patient can follow-up in the outpatient setting with urology. - Acute kidney injury - Likely due to obstructive calculus. - Will continue to monitor. Avoid NSAIDs and other nephrotoxins. - Improved 1.40 --> 1.10. Full code. SCDs. Discharge patient to home Condition on discharge: Improved Regular Diet as tolerated Ad Joyce activity Rx written: - Percocet 103 25 mg by mouth every 6 hours when necessary #15 - Flomax 0.4 mg daily. Follow-up with primary care physician within one week and Urology within two weeks in [place]. Grzegorz Garcia DO Mar 16, 2017 10:36 am
--- NOTE | 2017-03-16 11:08 | RADRPT ---
EXAM DATE/TIME: 03/16/2017 10:44 [facility] COMPARISON: CT ABDOMEN & PELVIS W/O CONTRAST, March 14, 2017, 9:06. INDICATIONS : Left side abdomen pain, calculi MEDICAL HISTORY : left side kidney stones SURGICAL HISTORY : None. ENCOUNTER: Subsequent ACUITY: 4 - 6 days PAIN SCORE: 1/10 LOCATION: Left abdomen FINDINGS: Nonobstructive bowel gas pattern. There are 2 calculi in the left hemipelvis identified measuring up to 6 mm. One is felt to represent a phlebolith, the other a distal ureteral stone. CONCLUSION: Left distal ureteral calculus. Ivan Le MD on March 16, 2017 at 11:04 Board Certified Radiologist. This report was verified electronically.
== END 2017-03-16 12:12 | disposition home or self-care (01) ==
LOC: PHED 08:34 → PHEDA 10:42 → PH3A 15:00
PROVIDERS: ADMIT Hospitalist; ATTEND Hospitalist
DX: N13.2 Hydronephrosis with renal and ureteral calculous obstruction (principal); N17.9 Acute kidney failure, unspecified; N39.0 Urinary tract infection, site not specified; R51 Headache; E66.9 Obesity, unspecified; Z87.442 Personal history of urinary calculi; Z86.73 Personal history of transient ischemic attack (TIA), and cerebral infarction without residual deficits
CPT/HCPCS: 74000; 74176; 80048; 80053; 81001; 85025; 87086; 96365; 96375; 96376; 99285; G0378; J0696; J2270; J2405; J7030